=== PATIENT | female | born 1935 | race Caucasian/White ===

== ENCOUNTER → 2017-01-02 | Outpatient (CLI) | payer MEDICARE ==
[~2017-01-02] MED LIST: BIMA2.5D EACHEYE; CHOL5000 PO; DEXT15DR5 EACHEYE; LEVO125T5 PO; MULT-115 PO; [UNRECOGNIZED DRUG - OTHER] INJ
== END | disposition home or self-care (01) ==
LOC: CFH 09:40 → EDSTATUS 10:15
PROVIDERS: ATTEND Pain Medicine Pain Medicine
DX: M51.36 Other intervertebral disc degeneration, lumbar region (principal); M51.27 Other intervertebral disc displacement, lumbosacral region; D18.09 Hemangioma of other sites
CPT/HCPCS: 72148